=== PATIENT | male | born 1985 | race Caucasian/White ===

== ENCOUNTER 2016-10-07 10:57 | Emergency (ER) | payer MEDICAID ==
[~2016-10-07] VITALS: Ht 180.3 cm; Wt 83.5 kg
[2016-10-07 16:59] VITALS: BP 107/74
== END 2016-10-08 01:05 | disposition left against medical advice (07) ==
LOC: ER 11:02
DX: Z76.1 Encounter for health supervision and care of foundling (principal); Z76.89 Persons encountering health services in other specified circumstances; Z53.21 Procedure and treatment not carried out due to patient leaving prior to being seen by health care provider